=== PATIENT | male | born 1970 | race Caucasian/White ===

== ENCOUNTER → 2017-09-05 | Outpatient (CLI) | payer OTHER ==
[~2017-09-05] MED LIST: ACET-1935 PO; ALL300 PO; ALLO-2 PO; FEN145 PO; FLU45SYR17 IM; FLU45SYR25 IM ONLY; FLUT9.9S ENA; GLUC500T22 PO; HYDR-385 PO; META800T18 PO; MULT-976 PO; NIAC-1 PO; NIAC500T85 PO; NIASPAN; OMEG-11 PO; PANT40TA65 PO; RANI-345 PO; ROS10 PO; TRILIPIX; VARE1TAB3 PO
[2017-09-05 05:28] LABS: PLATELET COUNT, AUTOMATED 252 K/uL (150-450)
== END ==
LOC: LAB 04:57
PROVIDERS: ATTEND Internal Medicine
DX: Z12.5 Encounter for screening for malignant neoplasm of prostate (principal); Z00.00 Encounter for general adult medical examination without abnormal findings; K21.9 Gastro-esophageal reflux disease without esophagitis; M10.9 Gout, unspecified; E78.5 Hyperlipidemia, unspecified
CPT/HCPCS: 36415; 81001; 82040; 82247; 82310; 82374; 82435; 82465; 82565; 82947; 83036; 83718; 84075; 84132; 84153; 84155; 84295; 84443; 84450; 84460; 84478; 84520; 84550; 85025

== ENCOUNTER → 2017-12-12 | Outpatient (CLI) | payer OTHER ==
[~2017-12-12] MED LIST changes: +FENO145T36 PO; +METF500T4 PO
[2017-12-12 06:10] LABS: LDL CHOLESTEROL 141 mg/dl
== END ==
LOC: LAB 05:18
PROVIDERS: ATTEND Internal Medicine
DX: K22.70 Barrett's esophagus without dysplasia (principal); E78.5 Hyperlipidemia, unspecified; R73.9 Hyperglycemia, unspecified
CPT/HCPCS: 36415; 82040; 82247; 82310; 82374; 82435; 82465; 82565; 82947; 83036; 83718; 84075; 84132; 84155; 84295; 84450; 84460; 84478; 84520

== ENCOUNTER → 2018-08-06 | Outpatient (CLI) | payer OTHER ==
[~2018-08-06] MED LIST changes: +ATOR10TA65 PO; +FLU60VIA41 IM
[2018-08-06 10:00] LABS: PLATELET COUNT, AUTOMATED 262 K/uL (150-450)
[2018-08-06 10:17] LABS: LDL CHOLESTEROL 97 mg/dl
== END ==
LOC: LAB 09:35
PROVIDERS: ATTEND Internal Medicine
DX: Z12.5 Encounter for screening for malignant neoplasm of prostate (principal); I10 Essential (primary) hypertension; R73.9 Hyperglycemia, unspecified; E78.5 Hyperlipidemia, unspecified
CPT/HCPCS: 36415; 81001; 82040; 82247; 82310; 82374; 82435; 82465; 82565; 82947; 83036; 83718; 84075; 84132; 84155; 84295; 84443; 84450; 84460; 84478; 84520; 85025

== ENCOUNTER 2018-08-29 01:02 | Day surgery (SDC) | payer OTHER ==
[~2018-08-29] VITALS: Ht 188 cm; Wt 107.0 kg
[~2018-08-29 01:02] MED LIST changes: +ATOR20TA65 PO; +PRED20TA6 PO; +TURM538C PO
[2018-08-29 06:30] VITALS: BP 134/89
[2018-08-29] MEDS ORDERED: LIDOCAINE/SOD BICARB 8.4% SYR ID ONE (06:55)
[2018-08-29] MEDS ORDERED: NORMOSOL R SOLN(*) 1000 ML BAG 1,000 ML IV PRN (06:55)
[2018-08-29 09:11] VITALS: BP 128/88
[2018-08-29] MEDS ORDERED: fentaNYL CITR 100 MCG/2 ML AMP ONE (09:23)
[2018-08-29 09:30] VITALS: BP 124/89
--- NOTE | 2018-08-29 09:32 | Short(Outpt) Discharge Summary ---
Discharge Summary Reason for Hosp/Final Diag: (1) Encounter for colonoscopy due to history of adenomatous colonic polyps Status: Acute Hospital Course & Plan: pt presented for egd and colonoscopy. he tolerated the procedure well and there were no complications. path pending. pt will be discharged home when criteria met. (2) Aj esophagus Departure Discharge to: Home Discharge Instructions Home Meds Active Scripts Metformin Hcl (METFORMIN HCL ER) 500 Mg Tab.er.24, 1 TAB PO QDAY, #30 TAB 0 Refills Prov:AVEL APODACA MD 08/15/18 Pantoprazole Sodium (PANTOPRAZOLE SODIUM) 40 Mg Tablet.dr, 40 MG PO QDAY, #90 TAB.SR 3 Refills Prov:AVEL APODACA MD 08/08/18 Atorvastatin Calcium (ATORVASTATIN CALCIUM) 20 Mg Tablet, 1 TAB PO QDAY, #90 TAB 3 Refills Prov:AVEL APODACA MD 08/08/18 Fenofibrate Nanocrystallized (FENOFIBRATE) 145 Mg Tablet, 145 MG PO QDAY, #90 TAB 1 Refill Prov:AVEL APODACA MD 08/08/18 Allopurinol (Allopurinol) 300 Mg Tablet, 1 TAB PO DAILY for 90 Days, #90 TAB 4 Refills Prov:AVEL APODACA MD 08/08/18 Reported Medications Turmeric Root Extract (Turmeric) 538 Mg Capsule, 1 CAP PO DAILY 08/24/18 Diet: Regular Activity: As Tolerated Special Instructions: we will call you in 10 days with biopsy results. DOC OSHEA Aug 29, 2018 09:31
[2018-08-29 09:45] VITALS: BP 122/89
[2018-08-29 09:58] VITALS: BP 123/86
[2018-08-29 09:59] VITALS: BP 130/94
== END 2018-08-29 10:15 | disposition home or self-care (01) ==
LOC: OR 01:02
PROVIDERS: ATTEND Surgery
DX: K31.7 Polyp of stomach and duodenum (principal); K22.70 Barrett's esophagus without dysplasia; K44.9 Diaphragmatic hernia without obstruction or gangrene; K29.70 Gastritis, unspecified, without bleeding; K57.30 Diverticulosis of large intestine without perforation or abscess without bleeding; D12.2 Benign neoplasm of ascending colon; D12.4 Benign neoplasm of descending colon; D12.7 Benign neoplasm of rectosigmoid junction; D12.5 Benign neoplasm of sigmoid colon; D12.3 Benign neoplasm of transverse colon; D12.8 Benign neoplasm of rectum; K21.9 Gastro-esophageal reflux disease without esophagitis; I10 Essential (primary) hypertension; E78.1 Pure hyperglyceridemia; G60.9 Hereditary and idiopathic neuropathy, unspecified; F17.200 Nicotine dependence, unspecified, uncomplicated; Z86.010 Personal history of colon polyps; Z79.899 Other long term (current) drug therapy
CPT/HCPCS: 00813; 36416; 43239; 43249; 45380; 45385; 82948; 87077; 88305; 88313; 88344; J3010; C1726

== ENCOUNTER → 2018-08-30 | Outpatient (CLI) | payer OTHER ==
[~2018-08-30] MED LIST changes: +IOPAMIDOL 76% 75 ML INFUS BTL 75 ML ONE
--- NOTE | 2018-08-30 16:37 | RADIOLOGY IMAGING REPORT ---
[place] [facility] [place] NAME: Cosme Solorio : 1970 MR: [id number] V: [id number] EXAM DATE: ORDERING PHYSICIAN: DOC OSHEA TECHNOLOGIST: Location: [facility] - [place] Patient: Cosme Solorio : 1970 Visit/Account:[id number] Date of Sevice: 08/30/2018 CT ABDOMEN PELVIS W/ CON HISTORY: Left-sided abdomen pain, colonoscopy yesterday TECHNIQUE: Following administration of IV contrast contiguous axial images acquired through the abdom en/pelvis. Coronal and sagittal reformatting also performed.Dose Lowering Technique One of the following dose optimization techniques was utilized in the performance of this exam: Autom ated exposure control; adjustment of the mA and/or kV according to the patient's size; or use of an i terative reconstruction technique. Specific details can be referenced in the facility's radiology C T exam operational policy. CONTRAST: 90 mL Isovue-370 COMPARISON: None. FINDINGS: Visualized lung bases: Negative. Hepatobiliary: There multiple small calcifications within the liver which may represent granulomas. There is diffuse hepatic steatosis Spleen: Negative. Adrenals: Negative. Pancreas: Negative. Kidneys ureters or bladder: There are nonobstructing calculi seen in both renal collecting systems. The largest on the left measures 8 x 7 mm and the largest on the right measures 2 mm. there is a 4 mm calculus in the mid left ureter although no evidence of hydronephrosis or hydroureter Genitalia: Negative. GI: There is diverticulosis of the left-sided the colon. There is minimal fat stranding in the mid left paracolic gutter with mild thickening of the adjacent descending colon. There is no evidence of free intraperitoneal air. Vessels/spaces/nodes: There mild atherosclerotic calcifications in the abdominal aorta and branch ve ssels there shotty retroperitoneal lymph nodes Bones/soft tissues: There Is a left inguinal hernia containing fat. There are small umbilical hernia containing fat . There is moderate disc space narrowing at L5-S1 and a grade 1 anterior listhesis of L5 with respect S 1 secondary to bilateral pars defects at L5. There is mild anterior wedging at T9-T10 and 11 Additional findings: None pertinent. IMPRESSION: There is a 4 mm calculus in the mid left ureter although no evidence of left hydronephrosis or left h ydroureter. Also noted are additional nonobstructing calculi in both renal collecting systems Diverticulosis left-sided colon. There is minimal fat stranding in the left paracolic gutter with mild thickening of the adjacent mid descending colon which may be related to mild inflammation. There is no evidence of free intraperito laura air. Multiple small calcified occasions within the liver which may represent granulomas Diffuse hepatic steatosis Left inguinal hernia containing fat Small left umbilical hernia containing fat Mild anterior wedging at T9, T10 and T11 Moderate disc space narrowing at L5-S1 with grade 1 anterior listhesis of L5 with respect S1 secondar y to bilateral pars defects at L5. Results were called to DOC OSHEA's nurse at 08/30/2018 4:31 PM. Report Dictated By: Ewa Morley MD at 08/30/2018 4:18 PM Report E-Signed By: Ewa Morley MD at 08/30/2018 4:31 PM WSN:[id number]
== END ==
LOC: CT 15:33
PROVIDERS: ATTEND Surgery
DX: N20.0 Calculus of kidney (principal); K57.30 Diverticulosis of large intestine without perforation or abscess without bleeding; K76.0 Fatty (change of) liver, not elsewhere classified; K42.9 Umbilical hernia without obstruction or gangrene; M47.897 Other spondylosis, lumbosacral region
CPT/HCPCS: 74177; Q9967

== ENCOUNTER 2018-11-18 17:22 | Observation (INO) | payer OTHER ==
[~2018-11-18] VITALS: Ht 188 cm; Wt 115.2 kg
[~2018-11-18 17:22] MED LIST changes: -IOPAMIDOL 76% 75 ML INFUS BTL 75 ML ONE
[2018-11-18] MEDS ORDERED: NS(*) 0.9% 1000 ML BAG 1,000 ML IV ONE (17:39)
[2018-11-18] MEDS ORDERED: ONDANSETRON 4 MG/2 ML VIAL IVP ONE (17:40)
[2018-11-18] MEDS ORDERED: fentaNYL CITR 100 MCG/2 ML AMP IVP ONE (17:40)
--- NOTE | 2018-11-18 17:43 | ER Report ---
History and Physical Time Seen By MD: 17:39 HPI/ROS CHIEF COMPLAINT: Left flank pain HISTORY OF PRESENT ILLNESS: This is a 48-year-old male who presents to emergency department for left sided abdominal pain. Patient states he had a colonoscopy in August, after the colonoscopy began having some left-sided pain, had a CT scan which he states "showed a kidney stone". Has been doing okay since, then 2 days ago began to have some left sided pain, progressively getting worse, today he presents with significant discomfort to the left side and flank. Patient is unable to find a comfortable position. No fevers or chills. He has nausea no vomiting. Denies chest pain or shortness of breath. No rashes or headaches. REVIEW OF SYSTEMS: Constitutional: No fever, no chills. Eyes: No discharge. ENT: No sore throat. Cardiovascular: No chest pain, no palpitations. Respiratory: No cough, no shortness of breath. Gastrointestinal: As above. Genitourinary: As above. Musculoskeletal: As above. Skin: No rashes. Neurological: No headache. Allergies: Coded Allergies: No Known Drug Allergies (Verified , 06/12/12) Home Meds Active Scripts Metformin Hcl (METFORMIN HCL ER) 500 Mg Tab.er.24, 1 TAB PO QDAY, #30 TAB 0 Refills Prov:AVEL APODACA MD 08/15/18 Pantoprazole Sodium (PANTOPRAZOLE SODIUM) 40 Mg Tablet.dr, 40 MG PO QDAY, #90 TAB.SR 3 Refills Prov:AVEL APODACA MD 08/08/18 Atorvastatin Calcium (ATORVASTATIN CALCIUM) 20 Mg Tablet, 1 TAB PO QDAY, #90 TAB 3 Refills Prov:AVEL APODACA MD 08/08/18 Fenofibrate Nanocrystallized (FENOFIBRATE) 145 Mg Tablet, 145 MG PO QDAY, #90 TAB 1 Refill Prov:AVEL APODACA MD 08/08/18 Allopurinol (Allopurinol) 300 Mg Tablet, 1 TAB PO DAILY for 90 Days, #90 TAB 4 Refills Prov:AVEL APODACA MD 08/08/18 Reported Medications Turmeric Root Extract (Turmeric) 538 Mg Capsule, 1 CAP PO DAILY 08/24/18 Past Medical/Surgical History The patient has a past medical and surgical history of hypercholesterolemia, occasional heartburn, Aj's esophagus, back pain, "prediabetic", colonoscopy, polyps removed, appendectomy, right hip surgery, L4-5 surgery. Reviewed Nurses Notes: Yes Hx Smoking: Yes (SMOKED OFF AND ON FOR 30 YRS, 1PPD) Smoking Status: Former Smoker Hx Alcohol Use: Yes Constitutional Vital Sign - Last 24 Hours 11/18/18 18:01 Temp 100.4 Pulse 53 Resp 24 B/P (MAP) 153/92 Pulse Ox 96 O2 Delivery Room Air Physical Exam General Appearance: The patient is alert, has no immediate need for airway protection and no signs of toxicity, appears very anxious. Eyes: Pupils equal and round no pallor or injection. ENT, Mouth: Mucous membranes are moist. Respiratory: There are no retractions, lungs are clear to auscultation. Cardiovascular: Regular rate and rhythm. No murmurs, clicks or rubs. Gastrointestinal: Abdomen is round, soft , tenderness to the left side of abdomen, into the left mid quadrant into the left flank, normoactive bowel sound s, no masses or abdominal bruits. Neurological: Alert and oriented 4. Moving all extremities. Following all commands. No focal neuro deficits. Skin: Warm and dry, no rashes. Musculoskeletal: Neck is supple non tender. Extremities are nontender, nonswollen and have full range of motion. DIFFERENTIAL DIAGNOSIS: After history and physical exam differential diagnosis was considered for abdominal pain including but not limited to appendicitis, cholecystitis, gastritis and urinary tract infection.flank pain including but not limited to musculoskeletal causes, kidney stone, pyelonephritis, shingles, and intra-abdominal causes such as diverticulitis and appendicitis. Medical Decision Making Data Points Result Diagram: 11/18/18 17511/18/18 175 Laboratory Hematology Test 11/18/18 17:50 11/18/18 19:16 Red Blood Count 5.17 M/uL (4.00-5.60) Mean Corpuscular Volume 90.2 fL (80.0-96.0) Mean Corpuscular Hemoglobin 31.1 pg (26.0-33.0) Mean Corpuscular Hemoglobin Concent 34.4 g/dL (32.0-36.0) Red Cell Distribution Width 13.1 % (11.5-14.5) Mean Platelet Volume 8.1 fL (7.2-11.1) Neutrophils (%) (Auto) 40.8 % (39.4-72.5) Lymphocytes (%) (Auto) 43.7 % (17.6-49.6) Monocytes (%) (Auto) 11.2 % (4.1-12.4) Eosinophils (%) (Auto) 2.6 % (0.4-6.7) Basophils (%) (Auto) 1.7 % (0.3-1.4) Nucleated RBC Relative Count (auto) 0.0 /100WBC Neutrophils # (Auto) 3.6 K/uL (2.0-7.4) Lymphocytes # (Auto) 3.8 K/uL (1.3-3.6) Monocytes # (Auto) 1.0 K/uL (0.3-1.0) Eosinophils # (Auto) 0.2 K/uL (0.0-0.5) Basophils # (Auto) 0.2 K/uL (0.0-0.1) Nucleated RBC Absolute Count (auto) 0.00 K/uL Erythrocyte Sedimentation Rate 3 mm/HOUR (0-15) Sodium Level 140 mmol/L (137-145) Potassium Level 3.8 mmol/L (3.5-5.0) Chloride Level 107 mmol/L (98-107) Carbon Dioxide Level 22 mmol/L (22-30) Blood Urea Nitrogen 18 mg/dl (9-21) Creatinine 1.00 mg/dl (0.66-1.25) Glomerular Filtration Rate Calc > 60.0 Random Glucose 87 mg/dl (75-110) Calcium Level 9.4 mg/dl (8.4-10.2) Total Bilirubin 0.3 mg/dl (0.2-1.3) Aspartate Amino Transf (AST/SGOT) 25 U/L (0-35) Alanine Aminotransferase (ALT/SGPT) 41 U/L (0-56) Alkaline Phosphatase 36 U/L (0-126) C-Reactive Protein < 0.5 mg/dl (<1.0) Total Protein 7.0 g/dl (6.3-8.2) Albumin 4.3 g/dl (3.5-5.0) Lipase 64 U/L (23-300) Urine Color Yellow Urine Clarity Clear Urine pH 6.0 pH (4.8-9.5) Urine Specific Sutton 1.016 Urine Protein Negative mg/dL (NEGATIVE) Urine Glucose (UA) Negative mg/dL (NEGATIVE) Urine Ketones Negative mg/dL (NEGATIVE) Urine Blood Negative (NEGATIVE) Urine Nitrite Negative (NEGATIVE) Urine Bilirubin Negative (NEGATIVE) Urine Urobilinogen Negative mg/dL (0.2-1.9) Urine Leukocyte Esterase Negative (NEGATIVE) Urine RBC 1 /HPF (0-2/HPF) Urine WBC 1 /HPF (0-5/HPF) Urine Squamous Epithelial Cells None /LPF (</=FEW) Urine Bacteria Negative /HPF (NONE-FEW) Urine Mucus None /HPF (NONE-FEW) Chemistry Test 11/18/18 17:50 11/18/18 19:16 White Blood Count 8.7 k/uL (4.5-11.0) Red Blood Count 5.17 M/uL (4.00-5.60) Hemoglobin 16.1 g/dL (14.0-18.0) Hematocrit 46.6 % (42.0-52.0) Mean Corpuscular Volume 90.2 fL (80.0-96.0) Mean Corpuscular Hemoglobin 31.1 pg (26.0-33.0) Mean Corpuscular Hemoglobin Concent 34.4 g/dL (32.0-36.0) Red Cell Distribution Width 13.1 % (11.5-14.5) Platelet Count 302 K/uL (150-450) Mean Platelet Volume 8.1 fL (7.2-11.1) Neutrophils (%) (Auto) 40.8 % (39.4-72.5) Lymphocytes (%) (Auto) 43.7 % (17.6-49.6) Monocytes (%) (Auto) 11.2 % (4.1-12.4) Eosinophils (%) (Auto) 2.6 % (0.4-6.7) Basophils (%) (Auto) 1.7 % (0.3-1.4) Nucleated RBC Relative Count (auto) 0.0 /100WBC Neutrophils # (Auto) 3.6 K/uL (2.0-7.4) Lymphocytes # (Auto) 3.8 K/uL (1.3-3.6) Monocytes # (Auto) 1.0 K/uL (0.3-1.0) Eosinophils # (Auto) 0.2 K/uL (0.0-0.5) Basophils # (Auto) 0.2 K/uL (0.0-0.1) Nucleated RBC Absolute Count (auto) 0.00 K/uL Erythrocyte Sedimentation Rate 3 mm/HOUR (0-15) Glomerular Filtration Rate Calc > 60.0 Calcium Level 9.4 mg/dl (8.4-10.2) Total Bilirubin 0.3 mg/dl (0.2-1.3) Aspartate Amino Transf (AST/SGOT) 25 U/L (0-35) Alanine Aminotransferase (ALT/SGPT) 41 U/L (0-56) Alkaline Phosphatase 36 U/L (0-126) C-Reactive Protein < 0.5 mg/dl (<1.0) Total Protein 7.0 g/dl (6.3-8.2) Albumin 4.3 g/dl (3.5-5.0) Lipase 64 U/L (23-300) Urine Color Yellow Urine Clarity Clear Urine pH 6.0 pH (4.8-9.5) Urine Specific Sutton 1.016 Urine Protein Negative mg/dL (NEGATIVE) Urine Glucose (UA) Negative mg/dL (NEGATIVE) Urine Ketones Negative mg/dL (NEGATIVE) Urine Blood Negative (NEGATIVE) Urine Nitrite Negative (NEGATIVE) Urine Bilirubin Negative (NEGATIVE) Urine Urobilinogen Negative mg/dL (0.2-1.9) Urine Leukocyte Esterase Negative (NEGATIVE) Urine RBC 1 /HPF (0-2/HPF) Urine WBC 1 /HPF (0-5/HPF) Urine Squamous Epithelial Cells None /LPF (</=FEW) Urine Bacteria Negative /HPF (NONE-FEW) Urine Mucus None /HPF (NONE-FEW) Urinalysis Test 11/18/18 19:16 Urine Color Yellow Urine Clarity Clear Urine pH 6.0 pH (4.8-9.5) Urine Specific Sutton 1.016 Urine Protein Negative mg/dL (NEGATIVE) Urine Glucose (UA) Negative mg/dL (NEGATIVE) Urine Ketones Negative mg/dL (NEGATIVE) Urine Blood Negative (NEGATIVE) Urine Nitrite Negative (NEGATIVE) Urine Bilirubin Negative (NEGATIVE) Urine Urobilinogen Negative mg/dL (0.2-1.9) Urine Leukocyte Esterase Negative (NEGATIVE) Urine RBC 1 /HPF (0-2/HPF) Urine WBC 1 /HPF (0-5/HPF) Urine Squamous Epithelial Cells None /LPF (</=FEW) Urine Bacteria Negative /HPF (NONE-FEW) Urine Mucus None /HPF (NONE-FEW) EKG/Imaging Imaging PATIENT NAME: Cosme Solorio : 1970 MR: [id number] V: [id number] EXAM DATE: [id number] ORDERING PHYSICIAN: ROYAL ARRIETA TECHNOLOGIST: Location: [facility] [place] Patient: Cosme Solorio : 1970 Visit/Account:[id number] Date of Sevice: 11/18/2018 EXAMINATION: CT ABDOMEN AND PELVIS WITHOUT CONTRAST COMPARISON: 08/30/2018 HISTORY: Pain. PROCEDURE: Multiplanar noncontrast CT of the abdomen and pelvis. One of the following dose optimization techniques was utilized in the performance of this exam: Automated exposure control; adjustment of the mA and/or kV according to the patient's size; or use of an iterative reconstruction technique. Specific details can be referenced in the facility's radiology CT exam operational policy. FINDINGS: Evaluation of the solid and viscus parenchymal organs and vascular structures is limited without the benefit of IV contrast. Visualized thorax: Lingula 4 mm pleural-based nodule (series 2 image 6). This portion the lung was not included on the prior abdomen CT. No acute findings. Liver: Scattered dystrophic calcifications throughout the right hepatic lobe are unchanged. No acute findings. Gallbladder and biliary system: Negative Spleen: Negative. Pancreas: Negative. Adrenal glands: Negative. Kidneys and bladder: Bilateral nonobstructing nephrolithiasis. The right kidney contains at least 3 punctate nonobstructing stones in the left kidney contains at least 4 nonobstructing stones, the largest of which measures 9 mm. No rad iopaque ureteral stone or hydronephrosis. Urinary bladder is unremarkable. Vessels: Aortoiliac mild atherosclerosis. No abdominal aortic aneurysm. Bowel: Stomach and small bowel are unremarkable. The appendix is not identified; no pericecal inflammation. Small amount of stool in the colon. Distal descending colon and sigmoid colon mild diverticulosis. No bowel or mesenteric inflammation. Pelvic organs: Negative. Lymph nodes, mesentery, and spaces: Mesenteric root mild lymph node enlargement and mild fat stranding is now present. Free air/free fluid: None. Musculoskeletal: Fat-containing left direct inguinal hernia. L5 bilateral chronic pars defects as well as moderately advanced L5-S1 degenerative disc disease results in 5 mm of spondylolisthesis, unchanged. IMPRESSION: 1. Bilateral nonobstructing nephrolithiasis. No radiopaque ureteral stone or hydronephrosis. 2. Mesenteric root increased mild lymph node enlargement and fat stranding. This is nonspecific but unless there is a clinical concern for pancreatitis or malignancy, mesenteric panniculitis is favored. Consider CT follow-up as clinically indicated. 3. Lingula 4 mm indeterminate nodule. Recommend follow-up as detailed below. 4. Additional chronic/incidental findings as described above. Results were discussed with ROYAL ARRIETA at 11/18/2018 6:41 PM. FLEISCHNER SOCIETY FOLLOW-UP GUIDELINES FOR NEWLY DETECTED INCIDENTAL NODULES IN PERSONS 35 YEARS OF AGE OR OLDER. *These recommendations do NOT apply to lung cancer screening, patients with immunosuppression or patients with a known primary malignancy. NODULE(S) IDENTIFIED ON INCOMPLETE CHEST If nodule size is < 6 mm: * No further investigation on the basis of the estimated low risk of malignancy. LOW RISK PATIENT: Minimal or absent history of tobacco use and of other known risk factors. HIGH RISK PATIENT: Tobacco use, family history of lung cancer, upper pulmonary lobe location of nodule, presence of emphysema, pulmonary fibrosis, older age. Rancho H, Bruno DP, Nguyễno JM, et al. Guidelines for Management of Incidental Pulmonary Nodules Detected on CT Images: From the Fleischner Society 2017. Radiology. [facility] Report Dictated By: Gary Carlisle MD at 11/18/2018 6:27 PM Report E-Signed By: Gary Carlisle MD at 11/18/2018 6:42 PM WSN:[id number] ED Course/Re-evaluation Clinical Indication for ER IV: Hydration, IV Access ED Course The patient was admitted to room. A history and physical were obtained. Differential diagnoses were considered. An IV was started. A CBC, CMP, UA and lipase were collected. A 1 L normal saline bolus was given. 4 mg IV Zofran, micrograms IV fentanyl were given. CT of the abdomen and pelvis showing bilateral nonobstructing nephrolithiasis, no radiopaque ureteral stone or hydronephrosis. Mesenteric root increased mild lymph node enlargement and fat stranding, concerning for possible pancreatitis, malignancy more likely mesenteric panniculitis, also noted was a lingula 4 mm intermediate nodule. Results were reviewed with the patient, I did recommend an admission in the hospital for possible continued workup as well as pain control, patient continues to have some discomfort in the left side into the flank.Patient was given 0.5 mg IV Dilaudid, 125 mg IV site Medrol. I did speak with Dr. Thomas perdomo as noted below, the hospitalist on-call, he is accepting the patient and the hospitalist services. Patient was agreeable with admission. 11/18/2018 8:15:44 pm I did speak with Dr. Jessica Perdomo, the hospitalist on- call about admitting the patient, he will come and evaluate the patient. We discussed the radiology report which suggested mesenteric panniculitis, I will start patient on 125 mg IV site Medrol. I did up to date the patient on the CT report. 11/18/2018 8:48:[address] Jessica Perdomo is evaluating the patient for possible admit. Decision to Disposition Date: November 18, 2018 Decision to Disposition Time: 21:07 Depart Departure Latest Vital Signs Vital Signs Date Time Temp Pulse Resp B/P (MAP) Pulse Ox O2 Delivery O2 Flow Rate FiO2 11/18/18 18:01 100.4 53 24 153/92 96 Room Air Impression: Primary Impression: Acute left flank pain Additional Impression: Left sided abdominal pain Condition: Improved Disposition: Admitted from ER Referrals: AVEL APODACA MD (PCP) Problem Qualifiers ROYAL ARRIETA SUBSURFACE AUGMENTEE OPERATOR-BC November 18, 2018 17:42
[2018-11-18 18:13] LABS: PLATELET COUNT, AUTOMATED 302 K/uL (150-450)
[2018-11-18] MEDS ORDERED: HYDROMORPHONE HCL 1 MG/ML SYRINGE IVP ONE (18:40)
--- NOTE | 2018-11-18 18:46 | RADIOLOGY IMAGING REPORT ---
FACILITY: [facility] PATIENT NAME: Cosme Solorio : 1970 MR: [id number] V: [id number] EXAM DATE: ORDERING PHYSICIAN: ROYAL ARRIETA TECHNOLOGIST: Location: [facility] - [place] Patient: Cosme Solorio : 1970 Visit/Account:[id number] Date of Sevice: 11/18/2018 EXAMINATION: CT ABDOMEN AND PELVIS WITHOUT CONTRAST COMPARISON: 08/30/2018 HISTORY: Pain. PROCEDURE: Multiplanar noncontrast CT of the abdomen and pelvis. One of the following dose optimizati on techniques was utilized in the performance of this exam: Automated exposure control; adjustment of the mA and/or kV according to the patient's size; or use of an iterative reconstruction technique. Specific details can be referenced in the facility's radiology CT exam operational policy. FINDINGS: Evaluation of the solid and viscus parenchymal organs and vascular structures is limited wi thout the benefit of IV contrast. Visualized thorax: Lingula 4 mm pleural-based nodule (series 2 image 6). This portion the lung was no t included on the prior abdomen CT. No acute findings. Liver: Scattered dystrophic calcifications throughout the right hepatic lobe are unchanged. No acute findings. Gallbladder and biliary system: Negative Spleen: Negative. Pancreas: Negative. Adrenal glands: Negative. Kidneys and bladder: Bilateral nonobstructing nephrolithiasis. The right kidney contains at least 3 p unctate nonobstructing stones in the left kidney contains at least 4 nonobstructing stones, the large st of which measures 9 mm. No radiopaque ureteral stone or hydronephrosis. Urinary bladder is unremar kable. Vessels: Aortoiliac mild atherosclerosis. No abdominal aortic aneurysm. Bowel: Stomach and small bowel are unremarkable. The appendix is not identified; no pericecal inflamm ation. Small amount of stool in the colon. Distal descending colon and sigmoid colon mild diverticulo sis. No bowel or mesenteric inflammation. Pelvic organs: Negative. Lymph nodes, mesentery, and spaces: Mesenteric root mild lymph node enlargement and mild fat strandin g is now present. Free air/free fluid: None. Musculoskeletal: Fat-containing left direct inguinal hernia. L5 bilateral chronic pars defects as wel l as moderately advanced L5-S1 degenerative disc disease results in 5 mm of spondylolisthesis, unchan ged. IMPRESSION: 1. Bilateral nonobstructing nephrolithiasis. No radiopaque ureteral stone or hydronephrosis. 2. Mesenteric root increased mild lymph node enlargement and fat stranding. This is nonspecific but u nless there is a clinical concern for pancreatitis or malignancy, mesenteric panniculitis is favored. Consider CT follow-up as clinically indicated. 3. Lingula 4 mm indeterminate nodule. Recommend follow-up as detailed below. 4. Additional chronic/incidental findings as described above. Results were discussed with ROYAL ARRIETA at 11/18/2018 6:41 PM. FLEISCHNER SOCIETY FOLLOW-UP GUIDELINES FOR NEWLY DETECTED INCIDENTAL NODULES IN PERSONS 35 YEARS OF AGE OR OLDER. *These recommendations do NOT apply to lung cancer screening, patients with immunosuppression or stepan ents with a known primary malignancy. NODULE(S) IDENTIFIED ON INCOMPLETE CHEST If nodule size is < 6 mm: * No further investigation on the basis of the estimated low risk of malignancy. LOW RISK PATIENT: Minimal or absent history of tobacco use and of other known risk factors. HIGH RISK PATIENT: Tobacco use, family history of lung cancer, upper pulmonary lobe location of nodul e, presence of emphysema, pulmonary fibrosis, older age. Sunshinehojackie H, Nasalo DP, Goo JM, et al. Guidelines for Management of Incidental Pulmonary Nodules Dete cted on CT Images: From the Fleischner Society 2017. Radiology. [facility] Report Dictated By: Gary Carlisle MD at 11/18/2018 6:27 PM Report E-Signed By: Gary Carlisle MD at 11/18/2018 6:42 PM WSN:[id number]
[2018-11-18] MEDS ORDERED: methylPREDNIS SUCC 125 MG/2ML IVP ONE (20:05)
[2018-11-18] MEDS ORDERED: HYDROmorphone HCL 2 MG/ML SDV IVP PRN (21:35)
[2018-11-18] MEDS ORDERED: KETOROLAC 30 MG/ML VIAL IVP ONE (21:35)
[2018-11-18] MEDS ORDERED: FLUSH 10 ML SYR IVP PRN (21:35)
[2018-11-18] MEDS ORDERED: INFLUENZA VIRUS VAC 0.5ML SYR IM ONLY ONE (21:35)
--- NOTE | 2018-11-18 21:35 | History & Physical ---
History of Present Illness Chief Complaint abdominal pain History of Present Illness 48M presented with 2 day history worsening abdominal/flank pain. PMHx significant for Aj esophagus , GERD. Reports flank discomfort yesterday which proceeded to get worse day of admission so he could not move without pain and limiting activities of daily living. Lab shows no abnormalties, CT abdomen has non-specific changes at mesenteric root most compatible with mesenteric panniculitis per radiology vs pancreatitis vs malignancy. There are non-obstruc ting renal calculi with no evidence hydroureter or nephrosis. No overt mass noted,, lipase WNL with atypical pain, there is mild LAD. ESR and CRP WNL, bland UA. History Problems: (1) GERD (gastroesophageal reflux disease) Status: Acute (2) Aj esophagus (3) Pre-diabetes Home Meds Active Scripts Metformin Hcl (METFORMIN HCL ER) 500 Mg Tab.er.24, 1 TAB PO QDAY, #30 TAB 0 Refills Prov:AVEL APODACA MD 08/15/18 Pantoprazole Sodium (PANTOPRAZOLE SODIUM) 40 Mg Tablet.dr, 40 MG PO QDAY, #90 TAB.SR 3 Refills Prov:AVEL APODACA MD 08/08/18 Atorvastatin Calcium (ATORVASTATIN CALCIUM) 20 Mg Tablet, 1 TAB PO QDAY, #90 TAB 3 Refills Prov:AVEL APODACA MD 08/08/18 Fenofibrate Nanocrystallized (FENOFIBRATE) 145 Mg Tablet, 145 MG PO QDAY, #90 TAB 1 Refill Prov:AVEL APODACA MD 08/08/18 Allopurinol (Allopurinol) 300 Mg Tablet, 1 TAB PO DAILY for 90 Days, #90 TAB 4 Refills Prov:AVEL APODACA MD 08/08/18 Reported Medications Turmeric Root Extract (Turmeric) 538 Mg Capsule, 1 CAP PO DAILY 08/24/18 Allergies: Coded Allergies: No Known Drug Allergies (Verified , 06/12/12) Patient History: Colon cancer Diabetes mellitus (DM) MOTHER, Age:unk FH: bladder cancer Cousins, Age:unk FH: colon cancer BROTHER OR SISTER, Age:unk, Onset:45 Paternal Uncle, , Age:Unknown Gout MOTHER, Age:unk Stent FATHER, Age:73 Hx Smoking: Yes (SMOKED OFF AND ON FOR 30 YRS, 1PPD) Smoking Status: Former Smoker Caffeine Intake: Coffee Caffeine/Cups Per Day: 1 Hx Alcohol Use: Yes Hx Substance Use Disorder: Yes Social Drug Use: Occasional Social Drugs: Marijuana Amount Of Social Drug/s Used: OCC Review of Systems All Systems Reviewed/Normal: Yes, Except as Noted Constitutional: No Fever Gastrointestinal: No Nausea, No Vomiting, No Diarrhea, No Constipation, No Hematochezia, No Melena; Abdominal Pain (very mild) Genitourinary: Other (flank pain) Exam Vital Signs Vital Signs Date Time Temp Pulse Resp B/P (MAP) Pulse Ox O2 Delivery O2 Flow Rate FiO2 11/18/18 18:01 100.4 53 24 153/92 96 Room Air General Appearance: Alert (mild distress 2/2 pain), Awake, Afebrile Neuro: No Gross deficits Cardiovascular: Normal Rhythm & Peripheral Pulses Respiratory: No Respiratory Distress GI: Abd Soft and Non-Tender : Other (+ CVA tenderness) Extremities: Soft and Non Tender, Warm, Pulses, Perfused; No Edema Medical Decision Making Data Points Result Diagram: 11/18/18174911/18/181749 Assessment and Plan Problems: (1) Flank pain Assessment & Plan: Appears to be 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 Will begin 40mg prednisone, tamoxifen as recommended. Pain will try Toradol injection and Dilaudid, PO percocet and NSAID once controlled. Would need biopsy likely surgical, previously seen Dr Mcpherson will discuss with him if patient still here Tuesday. (2) Aj esophagus Assessment & Plan: Continue chronic pantoprazole. (3) Pre-diabetes Assessment & Plan: ADA diet, hold metformin. Venous Thromboembolism Antithrombotics Is Pt On Any Antithrombotics?: Yes Exam Sepsis Risk: No Definite Risk DENI BARNETT DO November 18, 2018 21:34
[2018-11-18 22:08] VITALS: BP 146/97
[2018-11-18] MEDS: TAMOXIFEN CITRATE 10 MG TAB PO SCH (22:47)
[2018-11-18] MEDS ORDERED: KETOROLAC 30 MG/ML VIAL IVP PRN (23:30)
[2018-11-19 02:37] VITALS: BP 123/79
[2018-11-19] MEDS: PANTOPRAZOLE SOD 40 MG TABEC PO SCH (05:35)
[2018-11-19 06:47] VITALS: BP 127/87
[2018-11-19] MEDS: TAMOXIFEN CITRATE 10 MG TAB PO SCH ×2 (09:05→20:43)
[2018-11-19] MEDS: FENOFIBRATE,MICRON 145 MG TAB PO SCH (09:05)
[2018-11-19] MEDS: ALLOPURINOL 300 MG TAB PO SCH (09:06)
[2018-11-19] MEDS: APAP/HYDROCODONE 325/7.5 TAB PO PRN ×2 (09:06→21:38)
[2018-11-19] MEDS: predniSONE 20 MG TAB PO SCH (09:06)
[2018-11-19] MEDS: ENOXAPARIN 40 MG/0.4ML SYR SC SCH (09:06)
[2018-11-19] MEDS ORDERED: IBUPROFEN 600 MG TAB PO PRN (12:10)
--- NOTE | 2018-11-19 12:14 | Hospitalist Progress Note ---
Subjective Progress Notes Subjective Pain is better at rest but still having a lot of pain with sitting or standing. Pain remains most prominent in the L flank. Nausea is improved. He did had nausea and vomiting at home prior to admission but denies feeling feverish at home. He was febrile upon presentation to the ER. He denies FH of CTDs. He worked in the yard the day prior to his symptoms starting. He denies any abdominal trauma. No recent abdominal surgeries. Physical Exam Vital Signs Date Time Temp Pulse Resp B/P (MAP) Pulse Ox O2 Delivery O2 Flow Rate FiO2 11/19/18 06:47 98.3 57 16 127/87 (100) 91 Nasal Cannula 1.0 Intake and Output 11/19/18 07:00 Intake Total 1300 ml Balance 1300 ml Intake Oral 300 ml IV Total 1000 ml # Voids 4 General Appearance: Alert, Awake, No Acute Distress, Afebrile Neuro: No Gross deficits Eyes: PERRLA Cardiovascular: Regular Rate and Rhythm GI: Soft and Non-Tender Extremities: Warm, Perfused Integumentary: Skin Intact without Lesion / Mass Psych: Appropriate Mood & Affect Result Diagram: 11/18/18174911/18/181749 Assessment and Plan Problems: (1) Flank pain Assessment & Plan: Appears to be compatible with working diagnosis of mesenteric sclerosis/panniculitis per radiologist's interpretation of the CT scan. Will begin 40mg prednisone, tamoxifen as recommended per [employer]. Toradol injection and Dilaudid, PO Lortab and NSAID once controlled. Would need biopsy likely surgical for definitive diagnosis, previously has seen Dr Mcpherson and is planning inguinal hernia surgery. Will discuss with Dr. Mcpherson when available next week. (2) Aj esophagus Assessment & Plan: Continue chronic pantoprazole. (3) Pre-diabetes Assessment & Plan: ADA diet, hold metformin due to CT with contrast. Time Spent on Plan of Care: < 30 min Exam Sepsis Risk: No Definite Risk GARRETT KHALIL MD November 19, 2018 12:14
[2018-11-19 16:05] VITALS: BP 120/78
[2018-11-19] MEDS ORDERED: SENNOSIDES 8.6 MG TAB PO PRN (18:35)
[2018-11-19 19:12] VITALS: BP 127/79
[2018-11-19] MEDS ORDERED: ATORVASTATIN 10 MG TAB PO SCH (21:00)
[2018-11-19] MEDS ORDERED: diphenhydrAMINE 25 MG CAP PO PRN (23:50)
[2018-11-19 23:59] VITALS: BP 125/85
[2018-11-20] MEDS: PANTOPRAZOLE SOD 40 MG TABEC PO SCH (06:00)
[2018-11-20 08:42] VITALS: BP 123/80
[2018-11-20] MEDS ORDERED: SENNOSIDES 8.6 MG TAB PO PRN (08:55)
[2018-11-20] MEDS: ENOXAPARIN 40 MG/0.4ML SYR SC SCH (09:00)
[2018-11-20] MEDS: APAP/HYDROCODONE 325/7.5 TAB PO PRN (09:11)
[2018-11-20] MEDS: FENOFIBRATE,MICRON 145 MG TAB PO SCH (09:11)
[2018-11-20] MEDS: ALLOPURINOL 300 MG TAB PO SCH (09:12)
[2018-11-20] MEDS: TAMOXIFEN CITRATE 10 MG TAB PO SCH (09:12)
[2018-11-20] MEDS: predniSONE 20 MG TAB PO SCH (09:13)
--- NOTE | 2018-11-20 10:41 | Hospitalist Depart ---
Discharge Summary Reason for Hosp/Final Diag: (1) Back pain Hospital Course & Plan: He did present with pain in the left back. He describes the pain as worse with walking and when he raises his left leg. He does have a history of spinal stenosis and is already established with Dr. Whatley. He will follow up with him as an outpatient. (2) Mesenteric panniculitis Hospital Course & Plan: This was an incidental finding on his CT scan. He is already planning to follow up with Dr. Mcpherson for hernia surgery. He will follow up and discuss possible biopsy with him. (3) Lung nodule Hospital Course & Plan: This was also an incidental finding on his CT scan. (4) Kidney stone Hospital Course & Plan: He was found to have several nonobstructing. He will need to follow up with urology for further evaluation. (5) Aj esophagus Hospital Course & Plan: Continue chronic pantoprazole. (6) Pre-diabetes Hospital Course & Plan: ADA diet, hold metformin due to CT with contrast. Departure Weight (Pounds): 254 Result Diagram: 11/18/18 1750 11/18/18 175 Condition: Improved Discharge: Home, Self Care Discharge Instructions Home Meds Active Scripts Pantoprazole Sodium (PANTOPRAZOLE SODIUM) 40 Mg Tablet.dr, 40 MG PO QDAY, #90 TAB.SR 3 Refills Prov:AVEL APODACA MD 08/08/18 Atorvastatin Calcium (ATORVASTATIN CALCIUM) 20 Mg Tablet, 1 TAB PO QDAY, #90 TAB 3 Refills Prov:AVEL APODACA MD 08/08/18 Fenofibrate Nanocrystallized (FENOFIBRATE) 145 Mg Tablet, 145 MG PO QDAY, #90 TAB 1 Refill Prov:AVEL APODACA MD 08/08/18 Allopurinol (Allopurinol) 300 Mg Tablet, 1 TAB PO DAILY for 90 Days, #90 TAB 4 Refills Prov:AVEL APODACA MD 08/08/18 Reported Medications Turmeric Root Extract (Turmeric) 538 Mg Capsule, 1 CAP PO DAILY 08/24/18 Discontinued Scripts Metformin Hcl (METFORMIN HCL ER) 500 Mg Tab.er.24, 1 TAB PO QDAY, #30 TAB 0 Refills Prov:AVEL APODACA MD 08/15/18 Diet: Diabetic Activity: As Tolerated Copies to: DOC MCPHERSON; NEW WHATLEY MD; AVEL APODACA MD ; Venous Thromboembolism Antithrombotics Is Pt On Any Antithrombotics?: Yes COBY CHATMAN DO November 20, 2018 10:41
[2018-11-20] MEDS ORDERED: PER PO (11:36)
== END 2018-11-20 10:17 | disposition home or self-care (01) ==
LOC: ER 17:41 → MED 21:28 → INTOOBSV 21:28
PROVIDERS: ADMIT Internal Medicine; ATTEND Internal Medicine
DX: N20.0 Calculus of kidney (principal); K65.4 Sclerosing mesenteritis; K22.70 Barrett's esophagus without dysplasia; R91.1 Solitary pulmonary nodule; R73.03 Prediabetes; M54.9 Dorsalgia, unspecified
CPT/HCPCS: 74176; 81001; 83690; 85025; 85651; 86140; 96361; 96372; 96374; 96375; 99284; G0378; J1170; J1650; J1885; J2405; J2930; J3010; J7030; J7512; J9999; Q0163; 82040; 82247; 82310; 82374; 82435; 82565; 82947; 84075; 84132; 84155; 84295; 84450; 84460; 84520

== ENCOUNTER 2018-12-14 00:18 | Day surgery (SDC) | payer OTHER ==
[~2018-12-14] VITALS: Ht 188 cm; Wt 114.8 kg
[2018-12-14] VITALS (8 sets, daily range): BP systolic 102–143; BP diastolic 62–98
[~2018-12-14 00:18] MED LIST changes: +METF-450 PO; +PER PO
[2018-12-14] MEDS ORDERED: LEVOFLOXACIN/D5W*500 MG/100 ML 100 ML IVPB ONE (06:00)
[2018-12-14] MEDS: NORMOSOL R SOLN(*) 1000 ML BAG 1,000 ML IV PRN ×2 (06:06→09:20)
[2018-12-14] MEDS ORDERED: MIDAZOLAM 2 MG/2 ML VIAL IVP PRN (06:45)
[2018-12-14] MEDS ORDERED: LIDOCAINE/SOD BICARB 8.4% SYR ID ONE (06:45)
[2018-12-14] MEDS ORDERED: fentaNYL CITR 100 MCG/2 ML AMP ONE ×2 (06:57→08:54)
[2018-12-14] MEDS ORDERED: KETAMINE HCL-NS 50 MG/5 ML SYR ONE (06:57)
[2018-12-14] MEDS ORDERED: DEXAMETHASONE SOD PHOS 10MG/ML ONE (06:58)
[2018-12-14] MEDS ORDERED: PROPOFOL EMUL(*) 10MG/ML 20 ML 20 ML ONE (06:58)
[2018-12-14] MEDS ORDERED: LIDOCAINE MPF 1% 5 ML VIAL ONE (06:58)
[2018-12-14] MEDS ORDERED: ONDANSETRON 4 MG/2 ML VIAL ONE (06:58)
[2018-12-14] MEDS ORDERED: LABETALOL HCL 100 MG/20ML VIAL ONE (07:53)
[2018-12-14] MEDS ORDERED: BELLADONNA ALK/OPIUM 60MG SUPP PR ONE (08:03)
[2018-12-14] MEDS ORDERED: LABETALOL HCL 25 MG/5 ML SYRINGE ONE (08:50)
--- NOTE | 2018-12-14 09:02 | RADIOLOGY IMAGING REPORT ---
FACILITY: [facility] [place] PATIENT NAME: Cosme Solorio : 1970 MR: [id number] V: [id number] EXAM DATE: ORDERING PHYSICIAN: NEW GÓMEZ TECHNOLOGIST: Location: [facility] Patient: Cosme Solorio : 1970 Visit/Account:[id number] Date of Sevice: 12/14/2018 Exam type: C-ARM FLUORO 1 HR History: Stones, left ureteral stent placement Comparison: CT scan 11/18/2018. Findings: Fluoroscopy was used for the purposes of left ureteral stent placement. 10 seconds of fluoroscopy ti me was used and 12 images are provided. The provided images demonstrate a wire projecting over the left ureter subsequently replaced with a s cope. Please see detailed note by the radiologist for procedural details. IMPRESSION: 1. Fluoroscopy was provided for the purposes of left ureteral stent placement. Report Dictated By: Jason Webb MD at 12/14/2018 8:55 AM Report E-Signed By: Jason Webb MD at 12/14/2018 8:58 AM WSN:[email or web address]
[2018-12-14] MEDS ORDERED: OXYC-865 PO (10:16)
[2018-12-14] MEDS ORDERED: PHENAZOPYRIDINE 200 MG TAB ONE (11:26)
--- NOTE | 2018-12-14 11:32 | OPERATIVE REPORT 1 ---
EVENT DATE: December 14, 2018 SURGEON: Eduard Morton MD ANESTHESIOLOGIST: Jose Moffett MD ANESTHESIA: General. PREOPERATIVE DIAGNOSIS Large left lower pole renal calculus. POSTOPERATIVE DIAGNOSIS Large left lower pole renal calculus. PROCEDURE PERFORMED Left ureteroscopic laser lithotripsy with stone extraction and stent placement. DESCRIPTION OF PROCEDURE Patient was brought to the operating room and after the adequate induction of general anesthesia he was placed in the relaxed dorsal lithotomy position. The genitalia were scrubbed, prepped and draped in sterile fashion and the bladder examined with the rigid cystoscope. A guidewire was advanced to the level of the left renal pelvis and then the ureteral access sheath used to gain access to the proximal ureter. Once this was accomplished, the flexible ureteroscope was used to examine the calices of the left kidney. Several small Francesco's plaques were identified in the upper pole but the large stone in the lower pole was seen within a slightly stenotic infundibular orifice. Using the 200 micron fiber, the stone was fragmented into innumerable fragments, some of the largest of which were withdrawn via the basket to send for stone analysis. Once accomplished, the collecting systems were examined and no large residual fragments were identified. The sheath was withdrawn over the guidewire and a 24 cm 5-Bulgarian double J stent positioned with pull-out string under cystoscopic and fluoroscopic guidance. A B and O suppository was administered. The patient was aroused from anesthesia and then transported to PACU in stable condition. [facility] NETWORKGilson
[2018-12-14] MEDS ORDERED: oxyCODON/ACET (*)5/325MG (CII) 1 TAB TAB ONE (11:52)
[2018-12-19] MEDS ORDERED: CIPR-344 PO (10:32)
== END 2018-12-14 09:53 | disposition home or self-care (01) ==
LOC: OR 00:18
PROVIDERS: ATTEND Urology
DX: N20.0 Calculus of kidney (principal); E11.9 Type 2 diabetes mellitus without complications
CPT/HCPCS: 36416; 52332; 52352; 76000; 82365; 82948; 88300; C1894; C2617; J1100; J1956; J2001; J2405; J2704; J3010; J3490

== ENCOUNTER → 2018-12-19 | Outpatient (CLI) | payer OTHER ==
[~2018-12-19] MED LIST changes: +CIPR-344 PO; +OXYC-865 PO
--- NOTE | 2018-12-19 11:53 | RADIOLOGY IMAGING REPORT ---
FACILITY: [facility] PATIENT NAME: Cosme Solorio : 1970 MR: [id number] V: [id number] EXAM DATE: ORDERING PHYSICIAN: AVEL APODACA TECHNOLOGIST: Location: [facility] [place] Patient: Cosme Solorio : 1970 Visit/Account:[id number] Date of Sevice: 12/19/2018 Study: KUB SINGLE VIEW ABDOMEN Indication: Renal stone Comparison study: November 18, 2018 Findings: Supine view of the abdomen demonstrates the presence of a left ureteral stent in place. Th e proximal portion of the stent appears to be within the proximal ureter and not the pelvis of the ki dney. There are several stones present within the left kidney collecting system. The largest appear s to be at the lower pole and measures 5 mm in greatest dimension. There is no evidence of abnormal calcification along the course of the stent. There is no definite abnormal calcification identified overlying the right kidney. IMPRESSION: Several left-sided renal stones present. The left renal stent proximal aspect appears to be within the proximal ureter. Report Dictated By: Kurt Coats at 12/19/2018 11:42 AM Report E-Signed By: Kurt Coats at 12/19/2018 11:46 AM WSN:[email or web address]
== END ==
LOC: RAD 09:40
PROVIDERS: ATTEND Internal Medicine
DX: N20.0 Calculus of kidney (principal); Z96.0 Presence of urogenital implants
CPT/HCPCS: 74018